=== PATIENT | female | born 1990 | race Caucasian/White ===

== ENCOUNTER 2018-07-31 00:17 | Emergency (ER) | payer OTHER ==
[~2018-07-31] VITALS: Ht 162.6 cm; Wt 54.5 kg
[2018-07-31 00:20] VITALS: BP 117/85; TEMP 98.8
[2018-07-31] MEDS ORDERED: PERCOCET 325 MG1 TA2 PO (02:05)
[2018-07-31 02:45] VITALS: PULSE 72
== END 2018-07-31 02:45 | disposition home or self-care (01) ==
LOC: COL.ER 00:17
DX: S42.022A Displaced fracture of shaft of left clavicle, initial encounter for closed fracture (principal); S92.324A Nondisplaced fracture of second metatarsal bone, right foot, initial encounter for closed fracture; S92.341A Displaced fracture of fourth metatarsal bone, right foot, initial encounter for closed fracture; S92.351A Displaced fracture of fifth metatarsal bone, right foot, initial encounter for closed fracture; V28.4XXA Motorcycle driver injured in noncollision transport accident in traffic accident, initial encounter
CPT/HCPCS: J1170